=== PATIENT | male | born 1960 | race Hispanic/Latino ===

== ENCOUNTER 2021-09-20 07:43 | Emergency (ER) | payer OTHER ==
[2021-09-20] MEDS ORDERED: Albuterol Sulfate 1.25 MG/3 ML NEB ONE (08:33)
[2021-09-20 08:37] LABS: Actual Bicarbonate (HCO3v) 25 mEq/L (22-28); Analyzer IN Cardio ER; Base Excess 2.1 mEq/L (-2.0 to +3.0); Calcium, Ionized (venous) 1.05 mmol/L (1.16-1.32); Chloride (VBG) 100 mmol/L (98-106); Hemoglobin (Hb) 14.8 g/dL (13.1-17.2); Potassium (VBG) 3.94 mmol/L (3.70-5.30); Sodium 133.8 mmol/L (133-146)
[2021-09-20] MEDS ORDERED: Norepinephrine 8 MG/0.9% NS 250 ML ONE (08:49)
[2021-09-20 09:04] LABS: Hemoglobin 14.2 g/dL (14.0-18.0); Mean Corpuscular HGB CONC 32.8 g/dL (32.0-36.0); Mean Corpuscular Hemoglobin 26.7 pg (27.0-31.0); Mean Corpuscular Volume 81.3 fL (78.0-98.0); Mean Platelet Volume 10.7 fL (7.4-10.4); Platelet Count 134 thou/uL (130-400); RBC Distribution Width 15.4 % (11.5-14.5); Red Blood Cell (RBC) Count 5.31 mill/uL (4.70-6.10); White Blood Cell (WBC) Count 5.4 thou/uL (4.8-10.8)
[2021-09-20 09:05] LABS: Band 27 % (5-11); Eosinophils 4 % (0-10); Lymphocytes 32 % (21-51); MDiff Complete? YES; Metamyelocyte 3 % (0-0); Monocytes 4 % (0-10); Neutrophil 30 % (42-75); Nucleated RBC 3 % (0)
[2021-09-20 09:06] LABS: ALT (SGPT) 12 U/L (8-55); AST (SGOT) 23 U/L (5-34); Albumin 3.3 g/dL (3.4-4.8); Alkaline Phosphatase 79 U/L (40-110); Anion Gap 12 mmol/L (10-20); BUN (Urea Nitrogen) 23 mg/dL (8.4-25.7); Bilirubin, Total 1.5 mg/dL (0.2-1.2); CRP (Inflammatory) 2.56 mg/dL (= or < 0.5); Calc. Creatinine Clearance 0 mL/min (70-130); Calcium 8.4 mg/dL (7.8-10.44); Carbon Dioxide 27 mmol/L (23-31); Chloride 102 mmol/L (98-107); Globulin 1.8 g/dL (2.4-3.5); Glucose 82 mg/dL (80-115); Magnesium 2.5 mg/dL (1.6-2.6); Protein, Total 5.1 g/dL (5.8-8.1); Sodium 137 mmol/L (136-145)
[2021-09-20 09:20] LABS: SARS-CoV-2 NAA Rapid Test DETECTED (NotDetected)
[2021-09-20] MEDS ORDERED: Azithromycin 500 MG VIAL ONE (09:35)
[2021-09-20] MEDS ORDERED: cefTRIAXone\\ROCEPHIN 1 GM VIAL ONE (09:35)
[2021-09-20] MEDS ORDERED: Dexamethasone 10 MG/ML VIAL ONE (09:35)
[2021-09-20] MEDS ORDERED: Vancomycin 1 GM/200 ML BAG ONE (09:51)
[2021-09-20 10:35] LABS: Bacteria/HPF 1+ HPF (None Seen); Bilirubin Negative (Negative); Blood, Urine Negative (Negative); Clarity Clear (Clear); Glucose, Urine (Dipstick) Normal (Negative); Ketone, Urine Trace mg/dL (Negative); Leukocyte 75 Leu/uL (Negative); Nitrite Negative (Negative); Protein, Urine (Dipstick) 10 mg/dL (Neg-Trace); RBC/HPF 0-3 HPF (0-3); Specific Gravity, Urine 1.017 (1.002-1.036); Squamous Epithelial 0-3 HPF (0-3); Urobilinogen Normal mg/dL (Less than 2); WBC/HPF 0-3 HPF (0-3)
[2021-09-20] MEDS ORDERED: Norepinephrine 8 MG/0.9% NS 250 ML IVPB PRN (11:28)
[2021-09-20] MEDS ORDERED: Ondansetron PF 4 MG/2 ML Vial IVP PRN (11:28)
[2021-09-20] MEDS ORDERED: Bisacodyl 5 MG TAB PO PRN (11:36)
[2021-09-20] MEDS ORDERED: Senokot S 8.6-50 MG TAB PO PRN (11:36)
[2021-09-20] MEDS ORDERED: Ondansetron ODT 4 MG TAB PO PRN (11:36)
[2021-09-20] MEDS ORDERED: Acetaminophen 650 MG Suppository PR PRN (11:36)
[2021-09-20] MEDS ORDERED: Acetaminophen 325 MG TAB PO PRN (11:36)
[2021-09-20] MEDS ORDERED: HYDROcodone/Acetaminophen 5/325 mg Tablet PO PRN (11:36)
[2021-09-20] MEDS ORDERED: Guaifenesin DM 100-10/5 ML UDCUP PO PRN (11:36)
[2021-09-20] MEDS ORDERED: Furosemide 40 MG/4 ML VIAL SLOW IVP SCH (12:00)
[2021-09-20] MEDS ORDERED: Norepinephrine 8 MG in Dextrose 5% in Water 242 ML IVPB PRN (12:30)
[2021-09-20] MEDS ORDERED: Albuterol Sulfate 2.5 mg/3 ml Neb NEB SCH (13:00)
[2021-09-20] MEDS ORDERED: Famotidine 20 MG TAB PO SCH (21:00)
[2021-09-21] MEDS ORDERED: Enoxaparin Sodium 40 MG/0.4 ML SYRINGE SC SCH (09:00)
[2021-09-21] MEDS ORDERED: cefTRIAXone\\ROCEPHIN 2 GM in Sodium Chloride 0.9% 100 ML IVPB SCH (09:00)
[2021-09-21] MEDS ORDERED: Azithromycin 500 MG in Sodium Chloride 0.9% 250 ML 250 ML IVPB SCH (09:00)
[2021-09-21] MEDS ORDERED: Dexamethasone 4 mg/ml Vial SLOW IVP SCH (09:00)
[2021-09-21] MEDS ORDERED: Ascorbic Acid 500 mg Chewable Tablet PO SCH (09:00)
[2021-09-21] MEDS ORDERED: Cholecalciferol (Vitamin D3) 400 UNITS TAB PO SCH (09:00)
== END 2021-09-20 12:21 | disposition short-term general hospital (02) ==
LOC: ERS 07:43
DX: U07.1 COVID-19 (principal); J12.82 Pneumonia due to coronavirus disease 2019
CPT/HCPCS: 36415; 36556; 71045; 80053; 81001; 82805; 83605; 83735; 83880; 84145; 84484; 85025; 85379; 86140; 87040; 87149; 87804; 93005; 96365; 96366; 96367; 96375; J0456; J0696; J1100; J3370; U0002